=== PATIENT | female | born 1945 | race Caucasian/White ===

== ENCOUNTER 2023-08-10 22:55 | Emergency (ER) | payer OTHER ==
[~2023-08-10] VITALS: Ht 177.8 cm; Wt 113.4 kg
[2023-08-10] MEDS ORDERED: ONDANSETRON HCL/PF 4 MG/2 ML VIAL ONE (23:46)
[2023-08-10] MEDS ORDERED: FAMOTIDINE/PF INJ 20 MG/2 ML VIAL IV ONE (23:46)
[2023-08-10] MEDS ORDERED: MORPHINE SULFATE INJ 4 MG/ML DISP.SYRIN ONE (23:46)
[2023-08-10 23:51] LABS: BASOPHILS # (AUTO) 0.1 K/uL (0.0-0.2); BASOPHILS % (AUTO) 1.5 % (0.0-2.0); EOSINOPHILS % (AUTO) 0.2 % (0.0-6.0); HEMATOCRIT 33 % (33-45); HEMOGLOBIN 10.9 g/dL (11.5-14.8); LYMPHOCYTES # (AUTO) 0.4 K/uL (0.8-4.8); LYMPHOCYTES % (AUTO) 3.9 % (20.0-44.0); MEAN CORPUSCULAR HEMOGLOBIN 32 PG (26.0-33.0); MEAN CORPUSCULAR HGB CONC 33 g/dl (31.0-36.0); MEAN CORPUSCULAR VOLUME 98 fL (82-100); MONOCYTES # (AUTO) 0.6 K/uL (0.1-1.30); MONOCYTES % (AUTO) 5.5 % (2.0-12.0); NEUTROPHILS # (AUTO) 9.1 K/uL (1.8-8.9); NEUTROPHILS % (AUTO) 88.9 % (43.0-81.0); PLATELET COUNT (AUTO) 177 K/uL (150-450); RED BLOOD CELL COUNT(AUTO) 3.37 MIL/uL (4.0-5.2); RED CELL DISTRIBUTION WIDTH 16.9 % (11.5-15.0); WHITE BLOOD COUNT (AUTO) 10.2 K/uL (4.3-11.0)
[2023-08-10 23:59] LABS: CALCIUM, SERUM 10.1 mg/dL (8.5-10.1); CARBON DIOXIDE 27 mmol/L (21-32); CHLORIDE 103 mmol/L (98-107); CREATININE 0.9 mg/dL (0.6-1.3); GLUCOSE 147 mg/dL (74-106); POTASSIUM 4.1 mmol/L (3.5-5.1); SODIUM SERUM 139 mmol/L (136-145); UREA NITROGEN, BLOOD 17 mg/dL (7-18)
[2023-08-11] MEDS ORDERED: FAMOTIDINE/PF INJ 20 MG/2 ML VIAL IV ONE
[2023-08-11] MEDS ORDERED: ONDANSETRON HCL/PF 4 MG/2 ML VIAL IVP ONE
[2023-08-11] MEDS ORDERED: IV NS 0.9% 1,000 ML BAG IV ONE
[2023-08-11] MEDS ORDERED: MORPHINE SULFATE INJ 2 MG/ML DISP.SYRIN IV ONE
[2023-08-11] MEDS ORDERED: CT SWABBABLE VALVE TRANS SET 1 EA INFUS.SET MC ONE (00:02)
[2023-08-11] MEDS ORDERED: IOHEXOL-300 100 ML VIAL IV ONE (00:02)
[2023-08-11] MEDS ORDERED: IV NS 0.9% 250 ML IV ONE (00:02)
[2023-08-11 00:06] LABS: ALANINE AMINOTRANSFERASE 378 U/L (12-78); ALBUMIN 3.8 g/dL (3.4-5.0); ALKALINE PHOSPHATASE 362 U/L (46-116); ASPARTATE AMINOTRANSFERASE 543 U/L (15-37); BILIRUBIN,DIRECT 1.6 mg/dL (0.0-0.2); BILIRUBIN,TOTAL 3.4 mg/dL (0.2-1.0); TOTAL PROTEIN, SERUM 8.2 g/dL (6.4-8.2)
[2023-08-11 00:08] LABS: LIPASE 3449 U/L (73-393)
[2023-08-11 02:21] LABS: APPEARANCE,URINE CLEAR (CLEAR); BILIRUBIN,URINE 1+ (NEGATIVE); BLOOD, URINE TRACE-INTA Ery/uL (NEGATIVE); COLOR,URINE YELLOW (YELLOW); KETONES,URINE 1+ mg/dL (NEGATIVE); LEUKOCYTE ESTERASE ,URINE NEGATIVE (NEGATIVE); NITRITE, URINE NEGATIVE (NEGATIVE); PH,URINE 6.5 (5.0-8.0); PROTEIN,URINE 1+ mg/dl (NEGATIVE); UGLUCOSE NEGATIVE (NEGATIVE); UROBILINOGEN,URINE 0.2 EU/dL (0.2)
[2023-08-11 02:23] LABS: ADD URINE CULTURE NO; BACTERIA,URINE Rare /HPF (None Seen); SQUAMOUS EPITHELIAL CELL,UR Rare /HPF (None Seen); WBC,URINE 0-2 /HPF (0-3)
[2023-08-11] MEDS ORDERED: MORPHINE SULFATE INJ 10 MG/ML DISP.SYRIN IV ONE (03:00)
[2023-08-11] MEDS ORDERED: ONDANSETRON HCL/PF 4 MG/2 ML VIAL IV ONE (03:00)
[2023-08-11] MEDS ORDERED: ONDANSETRON HCL/PF 4 MG/2 ML VIAL ONE (03:05)
[2023-08-11] MEDS ORDERED: MORPHINE SULFATE INJ 4 MG/ML DISP.SYRIN ONE (03:05)
[2023-08-11] MEDS ORDERED: PIPERACILLIN /TAZOBACTAM 3.375 G in IV D5W 50 ML IV ONE (06:00)
[2023-08-11] MEDS ORDERED: PIPERACI/TAZO 3.375GM/D5W 50ML PB IV ONE (06:23)
[2023-08-11 12:56] VITALS: BP 105/69; TEMP 98.3; O2SAT 100
== END 2023-08-11 12:58 | disposition short-term general hospital (02) ==
LOC: ER 22:59
DX: K81.9 Cholecystitis, unspecified (principal); K85.90 Acute pancreatitis without necrosis or infection, unspecified; R10.11 Right upper quadrant pain; E78.5 Hyperlipidemia, unspecified; Z88.2 Allergy status to sulfonamides; Z60.2 Problems related to living alone
CPT/HCPCS: 99285; 74177; 96375; 71045; 96361; 93005; 85025; 80048; 83690; 80076; 81001; 36415; 84484; 96365; 76700; 96376; 87077; 87040; 87186; J2270 ×3; J3490; J2405 ×2; J7030; J7050; Q9967; J2543 ×2; J7060